=== PATIENT | female | born 1975 | race Caucasian/White ===

== ENCOUNTER 2021-11-02 08:52 | Day surgery (SDC) | payer OTHER, SELFPAY ==
[~2021-11-02] VITALS: Ht 157.5 cm; Wt 56.7 kg
[2021-11-02] MEDS ORDERED: NS IRRIG SOLN 1000 ML IR ONE (12:15)
[2021-11-02] MEDS ORDERED: ARTICAINE HCL/EPINEPHRINE 4%/1:200,000 BIT 1.7 ML CARTRIDGE IJ ONE (12:15)
[2021-11-02 13:19] VITALS: BP_SYST 121
== END 2021-11-02 12:40 | disposition home or self-care (01) ==
LOC: SDS 08:52 → SMU 08:57 → SDS 12:40
PROVIDERS: ATTEND Dentist General Practice
DX: M27.2 Inflammatory conditions of jaws (principal); K05.6 Periodontal disease, unspecified; H81.09 Meniere's disease, unspecified ear; Z79.899 Other long term (current) drug therapy; Z20.822 Contact with and (suspected) exposure to COVID-19
CPT/HCPCS: 21026; 21215; 21248; 36415; 70140; 87426; C1713

== ENCOUNTER 2021-12-15 07:50 | Day surgery (SDC) | payer OTHER ==
[~2021-12-15] VITALS: Ht 157.5 cm; Wt 56.7 kg
[2021-12-15 10:20] LABS: HCG,QUAL RESULT NEGATIVE (NEGATIVE)
[2021-12-15] MEDS ORDERED: NS IRRIG SOLN 1000 ML IR ONE (12:26)
[2021-12-15] MEDS ORDERED: ARTICAINE HCL/EPINEPHRINE 4%/1:200,000 BIT 1.7 ML CARTRIDGE IJ ONE (12:26)
[2021-12-15] MEDS ORDERED: NS 250 ML IV.SOLN IV ONE (12:26)
[2021-12-15] MEDS ORDERED: BENZOCAINE 20% GEL 32 GM BOTTLE MM ONE (12:26)
[2021-12-15 14:18] VITALS: BP_SYST 159
== END 2021-12-15 12:58 | disposition home or self-care (01) ==
LOC: SDS 07:50 → SMU 07:51 → SDS 12:58
PROVIDERS: ATTEND Dentist General Practice
DX: M27.2 Inflammatory conditions of jaws (principal); K05.6 Periodontal disease, unspecified; M89.8X0 Other specified disorders of bone, multiple sites; M26.603 Bilateral temporomandibular joint disorder, unspecified; K05.223 Aggressive periodontitis, generalized, severe; K08.421 Partial loss of teeth due to periodontal diseases, class I; I10 Essential (primary) hypertension; H54.40 Blindness, one eye, unspecified eye; E61.1 Iron deficiency; G47.33 Obstructive sleep apnea (adult) (pediatric); E11.9 Type 2 diabetes mellitus without complications; K21.9 Gastro-esophageal reflux disease without esophagitis; Z79.899 Other long term (current) drug therapy; Z20.822 Contact with and (suspected) exposure to COVID-19
CPT/HCPCS: 21025; 21215; 21248; 36415; 70140; 84703; 87426; C1713 ×2; J7050